=== PATIENT | female | born 1965 | race Caucasian/White ===

== ENCOUNTER 2018-11-09 08:19 | Emergency (ER) | payer OTHER, MEDICAID, SELFPAY ==
[2018-11-09 08:20] VITALS: BP 120/73; PULSE 83; RESP 14; TEMP 36.6; O2SAT 99
--- NOTE | 2018-11-09 08:33 | DI.RAD.S_ITS ---
PROCEDURE: XR FOOT LT MIN 3V INDICATIONS: heavy piece of wood fell on foot/ 1st toe TECHNIQUE: 3 views of the foot were acquired. COMPARISON: None. FINDINGS: Bones: There is a minimally displaced transverse fracture through the 1st distal phalanx. There is a small linear lucency within the medial shaft of the 2nd metatarsal. No dislocation or evidence of articular involvement. No suspicious bony lesions. Soft tissues: No tibiotalar joint effusion. Achilles tendon appears normal. IMPRESSION: 1. Nondisplaced fracture of the 1st distal phalanx. 2. Small linear lucency within the medial shaft of the 2nd metatarsal. The finding is suspicious for a nondisplaced fracture although differential includes a vascular channel. Dictated by: José Antonio Delatorre M.D. on 11/09/2018 at 9:24 Approved by: José Antonio Delatorre M.D. on 11/09/2018 at 9:29
[2018-11-09 08:37] VITALS: PULSE 88
--- NOTE | 2018-11-09 08:51 | ED.LOWEXIN ---
HPI - Extremity Injury (Lower) General Chief Complaint: Extremity Injury, Lower Stated Complaint: SLAMMED FOOT WITH WOOD, INJURY ON LEG,TOE BROKEN Time Seen by Provider: 11/09/18 08:27 Source: patient Mode of arrival: ambulatory Limitations: no limitations History of Present Illness HPI Narrative: This is a 53-year-old female who comes to the emergency department with complaint of pain in bruising over the dorsum of her left foot. Patient states yesterday she dropped a 2 x 12 board. It hit her thigh causing some bruising and then sort of slid down and hit her foot causing bruising and pain. Patient states she can weight bear but but more of her weight on her heel. She states most of the weight is over the toe. Patient denies any new weakness. She has some mild numbness over the dorsum of the foot. She is able to wiggle her toes without issue. Patient is not have any other symptoms. She states she takes medication for mood. She denies any other medical problems, she is a prior . She denies any other symptoms at this time. Related Data Home Medications Medication Instructions Recorded Confirmed fluoxetine 20 mg PO DAILY #0 11/24/11 11/09/18 Previous Rx's Medication Instructions Recorded hydrocodone-acetaminophen [[place]] 1 tab PO Q6H PRN #14 tab 11/09/18 Allergies Allergy/AdvReac Type Severity Reaction Status Date / Time codeine AdvReac Intermediate Nausea Verified 11/09/18 08:30 Review of Systems Review of Systems All systems reviewed & are unremarkable except as noted in HPI and below Musculoskeletal Reports as per HPI, Denies deformity, Denies joint swelling, Reports limited range of motion, Denies muscle weakness, Reports numbness, Denies stiffness and Reports other (bruising left foot, right thigh) Integumentary/Breasts Reports unusual bruising Neurologic Reports numbness PFSH Surgical History History of (Acute) Social History Smoking Status: Current every day smoker Exam Narrative Exam Narrative: GENERAL: Alert and oriented x three, , well-appearing female in mild distress. HEENT: Head normocephalic, atraumatic, EOMI, pupils reactive, face symmetric, moist mucous membranes NECK: Supple, full range of motion EXTREMITIES: Normal range of motion, no clubbing. Patient has no bony tenderness and normal range of motion of the right lower extremity. She has a large area of ecchymosis but no palpable hematoma underneath the mid thigh on the medial side. Patient has swelling and bruising over the dorsum of the left foot extending just to the base of the toes and a little bit into the 1st toe. Patient has some mild swelling over that area, none of the ankle. She has no bony tenderness of the toes or ankle itself. She does have some mild tenderness over for 2nd metatarsal area. No crepitus, no deformity. Patient is able to wiggle her toes without major issue. She has no other bony tenderness in her lower extremity. She has 2+ dorsalis pedis. Patient has sensation to light touch. Neurovascularly intact NEUROLOGICAL: Cranial nerves II through XII grossly intact. Moving all extremities SKIN: Warm, dry, no petechiae, no rashes or lesions. Initial Vital Signs Initial Vital Signs: Vital Signs Temperature 97.9 F 11/09/18 08:20 Pulse Rate 83 11/09/18 08:20 Respiratory Rate 14 11/09/18 08:20 Blood Pressure 120/73 11/09/18 08:20 Pulse Oximetry 99 11/09/18 08:20 Course Orders Ordered: ED Orders 11/09/18 08:33 XR foot LT min 3V Stat Discontinued Medications Acetaminophen (Tylenol) 975 mg PO NOW ONE Stop: 11/09/18 08:38 Last Admin: 11/09/18 08:52 Dose: 975 mg Ibuprofen (Advil) 800 mg PO NOW ONE Stop: 11/09/18 08:38 Last Admin: 11/09/18 08:52 Dose: 800 mg Vital Signs - 8 hr 11/09/18 08:20 11/09/18 08:37 11/09/18 10:02 Temperature 97.9 F Pulse Rate 83 70 Pulse Rate [Right Dorsalis Pedis] 88 Respiratory Rate 14 14 Blood Pressure 120/73 Blood Pressure [Left Arm] 120/72 Pulse Oximetry 99 98 MDM - Extremity Injury (Lower) Imaging Data xray left foot: Radiologist's impression: [address] [address] XRay Report Signed Patient: Carrie Infante MR#: [id number] : 1965 Acct:[id number] Age/Sex: 53 / F Date of Service: 11/09/18 Loc: ED Accession Number: [id number] Procedure: XR foot LT min 3V Ordering Provider: Sudha iDxon D.O. PROCEDURE: XR FOOT LT MIN 3V INDICATIONS: heavy piece of wood fell on foot/ 1st toe TECHNIQUE: 3 views of the foot were acquired. COMPARISON: None. FINDINGS: Bones: There is a minimally displaced transverse fracture through the 1st distal phalanx. There is a small linear lucency within the medial shaft of the 2nd metatarsal. No dislocation or evidence of articular involvement. No suspicious bony lesions. Soft tissues: No tibiotalar joint effusion. Achilles tendon appears normal. IMPRESSION: 1. Nondisplaced fracture of the 1st distal phalanx. 2. Small linear lucency within the medial shaft of the 2nd metatarsal. The finding is suspicious for a nondisplaced fracture although differential includes a vascular channel. Dictated by: José Antonio Delatorre M.D. on 11/09/2018 at 9:24 Approved by: José Antonio Delatorre M.D. on 11/09/2018 at 9:29 [facility] Narrative Medical decision making narrative: Re-examination patient is tender over the 2nd metatarsal in the area of suspected fracture Um and she also clearly has a fracture of her distal great toe. I discussed with patient, planned for toe-touch weight-bearing, we did offer crutches but patient defers. Patient primary care physician has recently left the area so was given referral to Orthopedic surgery. I discussed she does need follow-up particularly for the metatarsal fracture to make sure it is healing properly. She can use ice as tolerated, elevation is important. She needs to wear the splint until she is cleared by Orthopedic surgery or a primary care physician. Patient given a short-term prescription for narcotic pain medication as she has been trying Tylenol and ibuprofen without much improvement. Discharge Plan Departure Patient Disposition: Home Clinical Impression: Fracture of left great toe, Fracture of metatarsal of left foot, closed Discharge Date/Time: 11/09/18 10:06 Interventions: ED Discharge Assessment Last Done: 11/09/18 10:05 Instructions: DI for Foot Fracture Activity Restrictions/Additional Instructions: Follow-up with Orthopedic surgery in the next 7-10 days for recheck. Continue to use splint until cleared by Orthopedic surgery. You may weight bear as tolerated. You may use crutches if you would like. You may take pain medication as prescribed this medication can make you sleepy do not drive, perform hazards activities or make any major decisions while taking it. You may take Tylenol with this medication, you may take up to a 1000 mg every 8 hr as needed for pain. Splint Care: Keep splint clean and dry. Elevated affected body part to decrease swelling. OK to use ice pack on the affected body part. Use for 15-20 minutes each time, for 5-6x per day. If you develop worsening pain, numbness, tingling, discoloration of the affected body part, loosen the splint by loosening the ZAHRAA wrap, and either see your doctor for an urgent re-assessment, or return to the Emergency Department. Return to the Emergency Department for any new or worsening symptoms. Prescriptions: New hydrocodone-acetaminophen [[place]] 5-325 mg tablet 1 tab PO Q6H PRN (Reason: pain) Qty: 14 RF: 0 No Action fluoxetine 20 MG capsule 20 mg PO DAILY Qty: 0 RF: 0 Referrals: Rigo Milner ARNP [[facility]] - Ashish Hidalgo MD [Physician] -
[2018-11-09] MEDS: ACETAMINOPHEN 325 MG TABLET 975 MG PO (08:52)
[2018-11-09] MEDS: IBUPROFEN 400 MG TABLET 800 MG PO (08:52)
--- NOTE | 2018-11-09 09:04 | ED_ITS ---
HPI - Extremity Injury (Lower) General Chief Complaint: Extremity Injury, Lower Stated Complaint: SLAMMED FOOT WITH WOOD, INJURY ON LEG,TOE BROKEN Time Seen by Provider: 11/09/18 08:27 Source: patient Mode of arrival: ambulatory Limitations: no limitations History of Present Illness HPI Narrative: This is a 53-year-old female who comes to the emergency department with complaint of pain in bruising over the dorsum of her left foot. Patient states yesterday she dropped a 2 x 12 board. It hit her thigh causing some bruising and then sort of slid down and hit her foot causing bruising and pain. Patient states she can weight bear but but more of her weight on her heel. She states most of the weight is over the toe. Patient denies any new weakness. She has some mild numbness over the dorsum of the foot. She is able to wiggle her toes without issue. Patient is not have any other symptoms. She states she takes medication for mood. She denies any other medical problems, she is a prior . She denies any other symptoms at this time. Related Data Home Medications Medication Instructions Recorded Confirmed fluoxetine 20 mg PO DAILY #0 11/24/11 11/09/18 Previous Rx's Medication Instructions Recorded hydrocodone-acetaminophen [[place]] 1 tab PO Q6H PRN #14 tab 11/09/18 Allergies Allergy/AdvReac Type Severity Reaction Status Date / Time codeine AdvReac Intermediate Nausea Verified 11/09/18 08:30 Review of Systems Review of Systems All systems reviewed & are unremarkable except as noted in HPI and below Musculoskeletal Reports as per HPI, Denies deformity, Denies joint swelling, Reports limited range of motion, Denies muscle weakness, Reports numbness, Denies stiffness and Reports other (bruising left foot, right thigh) Integumentary/Breasts Reports unusual bruising Neurologic Reports numbness PFSH Surgical History History of (Acute) Social History Smoking Status: Current every day smoker Exam Narrative Exam Narrative: GENERAL: Alert and oriented x three, , well-appearing female in mild distress. HEENT: Head normocephalic, atraumatic, EOMI, pupils reactive, face symmetric, moist mucous membranes NECK: Supple, full range of motion EXTREMITIES: Normal range of motion, no clubbing. Patient has no bony tenderness and normal range of motion of the right lower extremity. She has a large area of ecchymosis but no palpable hematoma underneath the mid thigh on the medial side. Patient has swelling and bruising over the dorsum of the left foot extending just to the base of the toes and a little bit into the 1st toe. Patient has some mild swelling over that area, none of the ankle. She has no bony tenderness of the toes or ankle itself. She does have some mild tenderness over for 2nd metatarsal area. No crepitus, no deformity. Patient is able to wiggle her toes without major issue. She has no other bony tenderness in her lower extremity. She has 2+ dorsalis pedis. Patient has sensation to light touch. Neurovascularly intact NEUROLOGICAL: Cranial nerves II through XII grossly intact. Moving all extremities SKIN: Warm, dry, no petechiae, no rashes or lesions. Initial Vital Signs Initial Vital Signs: Vital Signs Temperature 97.9 F 11/09/18 08:20 Pulse Rate 83 11/09/18 08:20 Respiratory Rate 14 11/09/18 08:20 Blood Pressure 120/73 11/09/18 08:20 Pulse Oximetry 99 11/09/18 08:20 Course Orders Ordered: ED Orders 11/09/18 08:33 XR foot LT min 3V Stat Discontinued Medications Acetaminophen (Tylenol) 975 mg PO NOW ONE Stop: 11/09/18 08:38 Last Admin: 11/09/18 08:52 Dose: 975 mg Ibuprofen (Advil) 800 mg PO NOW ONE Stop: 11/09/18 08:38 Last Admin: 11/09/18 08:52 Dose: 800 mg Vital Signs - 8 hr 11/09/18 08:20 11/09/18 08:37 11/09/18 10:02 Temperature 97.9 F Pulse Rate 83 70 Pulse Rate [Right Dorsalis Pedis] 88 Respiratory Rate 14 14 Blood Pressure 120/73 Blood Pressure [Left Arm] 120/72 Pulse Oximetry 99 98 MDM - Extremity Injury (Lower) Imaging Data xray left foot: Radiologist's impression: [address] [address] XRay Report Signed Patient: Carrie Infante MR#: [id number] : 1965 Acct:[id number] Age/Sex: 53 / F Date of Service: 11/09/18 Loc: ED Accession Number: [id number] Procedure: XR foot LT min 3V Ordering Provider: Sudha Dixon D.O. PROCEDURE: XR FOOT LT MIN 3V INDICATIONS: heavy piece of wood fell on foot/ 1st toe TECHNIQUE: 3 views of the foot were acquired. COMPARISON: None. FINDINGS: Bones: There is a minimally displaced transverse fracture through the 1st distal phalanx. There is a small linear lucency within the medial shaft of the 2nd metatarsal. No dislocation or evidence of articular involvement. No suspicious bony lesions. Soft tissues: No tibiotalar joint effusion. Achilles tendon appears normal. IMPRESSION: 1. Nondisplaced fracture of the 1st distal phalanx. 2. Small linear lucency within the medial shaft of the 2nd metatarsal. The finding is suspicious for a nondisplaced fracture although differential includes a vascular channel. Dictated by: José Antonio Delatorre M.D. on 11/09/2018 at 9:24 Approved by: José Antonio Delatorre M.D. on 11/09/2018 at 9:29 [facility] Narrative Medical decision making narrative: Re-examination patient is tender over the 2nd metatarsal in the area of suspected fracture Um and she also clearly has a fracture of her distal great toe. I discussed with patient, planned for toe- touch weight-bearing, we did offer crutches but patient defers. Patient primary care physician has recently left the area so was given referral to Orthopedic surgery. I discussed she does need follow-up particularly for the metatarsal fracture to make sure it is healing properly. She can use ice as tolerated, elevation is important. She needs to wear the splint until she is cleared by Orthopedic surgery or a primary care physician. Patient given a short-term prescription for narcotic pain medication as she has been trying Tylenol and ibuprofen without much improvement. Discharge Plan Departure Patient Disposition: Home Clinical Impression: Fracture of left great toe, Fracture of metatarsal of left foot, closed Discharge Date/Time: 11/09/18 10:06 Interventions: ED Discharge Assessment Last Done: 11/09/18 10:05 Instructions: DI for Foot Fracture Activity Restrictions/Additional Instructions: Follow-up with Orthopedic surgery in the next 7-10 days for recheck. Continue to use splint until cleared by Orthopedic surgery. You may weight bear as tolerated. You may use crutches if you would like. You may take pain medication as prescribed this medication can make you sleepy do not drive, perform hazards activities or make any major decisions while taking it. You may take Tylenol with this medication, you may take up to a 1000 mg every 8 hr as needed for pain. Splint Care: Keep splint clean and dry. Elevated affected body part to decrease swelling. OK to use ice pack on the affected body part. Use for 15-20 minutes each time, for 5-6x per day. If you develop worsening pain, numbness, tingling, discoloration of the affected body part, loosen the splint by loosening the ZAHRAA wrap, and either see your doctor for an urgent re-assessment, or return to the Emergency Department. Return to the Emergency Department for any new or worsening symptoms. Prescriptions: New hydrocodone-acetaminophen [[place]] 5-325 mg tablet 1 tab PO Q6H PRN (Reason: pain) Qty: 14 RF: 0 No Action fluoxetine 20 MG capsule 20 mg PO DAILY Qty: 0 RF: 0 Referrals: Rigo Milner ARNP [[facility]] - Ashish Hidalgo MD [Physician] -
[2018-11-09 10:02] VITALS: BP 120/72; PULSE 70; RESP 14; O2SAT 98
== END 2018-11-09 10:06 | disposition home or self-care (01) ==
LOC: ED 10:07
PROVIDERS: Emergency Provider Emergency Medicine
DX: S92.402A Displaced unspecified fracture of left great toe, initial encounter for closed fracture (principal); S92.302A Fracture of unspecified metatarsal bone(s), left foot, initial encounter for closed fracture; W23.0XXA Caught, crushed, jammed, or pinched between moving objects, initial encounter
CPT/HCPCS: 29550; 73630; 99283